=== PATIENT | male | born 1980 | race Two or more races ===

== ENCOUNTER 2020-01-18 10:17 | Inpatient (IN) | payer MEDICAID ==
[~2020-01-18] VITALS: Ht 177.8 cm; Wt 78.9 kg
[2020-01-18] MEDS ORDERED: ONDANSETRON HCL 4 MG/2 ML VIAL IV ONE (11:15)
[2020-01-18] MEDS ORDERED: MORPHINE SULFATE 4 MG/ML SYR/VIAL IV ONE ×2 (11:15→20:15)
[2020-01-18] MEDS ORDERED: SODIUM CHLORIDE 0.9% 500 ML IVB ONE (11:15)
[2020-01-18 11:26] LABS: Basophils # (auto) 0 10 ^3/uL (0-0.2); Basophils % (auto) 0.4 % (0.0-2.0); Eosinophils # (auto) 0 10 ^3/uL (0-0.8); Hematocrit 46.8 % (41.0-53.0); Hemoglobin 15.8 g/dL (13.5-17.5); Lymphocytes # (auto) 0.7 10 ^3/uL (0.4-5.4); Lymphocytes % (auto) 6.2 % (10.0-50.0); Mean Corpuscular Hemoglobin 28.8 pg (28.0-32.0); Mean Corpuscular Hgb Conc. 33.8 g/dL (32.0-36.0); Mean Corpuscular Volume 85.4 fL (80.0-100.0); Monocytes % (auto) 8.7 % (0.0-12.0); Neutrophils # (auto) 9.6 10 ^3/uL (1.6-8.6); Neutrophils % (auto) 84.7 % (37.0-80.0); Nucleated Red Blood Cells % 0.2 %; Platelet Count (auto) 194 10^3/uL (140-450); Red Blood Cells 5.49 10^6/uL (4.5-5.90); Red Cell Distribution Width 13.5 % (11.8-14.3); White Blood Cell 11.4 10^3/uL (4.4-10.8)
[2020-01-18 11:47] LABS: Albumin 3.7 g/dL (3.4-5.0); BUN/Creatinine Ratio 10.8; Calcium 8.8 mg/dL (8.5-10.1); Potassium 4.2 mmol/L (3.5-5.1)
[2020-01-18 11:51] LABS: Bilirubin, Total 0.8 mg/dL (0.2-1.0); Total Protein 8.4 g/dL (6.4-8.2)
[2020-01-18] MEDS ORDERED: metroNIDAZOLE 500MG/100ML 100 ML IV ONE (20:15)
[2020-01-18] MEDS ORDERED: PIPERACILLIN-TAZOB 3.375GM 100 ML IV ONE (20:15)
[2020-01-18] MEDS ORDERED: SODIUM CHLORIDE 0.9% 1,000 ML IV ONE (20:15)
[2020-01-19] MEDS ORDERED: MORPHINE SULF INJ 2 MG/ML SYRINGE 1ML IV PRN (01:30)
[2020-01-19] MEDS ORDERED: ACETAMINOPHEN 500 MG TAB PO PRN (01:30)
[2020-01-19] MEDS ORDERED: NITROGLYCERIN 0.4 MG SL TAB SL PRN (01:30)
[2020-01-19] MEDS ORDERED: PIPERACILLIN-TAZO 4.5GM 100 ML IV ONE (01:30)
[2020-01-19] MEDS ORDERED: HYDROmorphone HCL 2 MG/ML VL IV PRN ×2 (01:30→14:30)
[2020-01-19] MEDS ORDERED: ONDANSETRON HCL 4 MG/2 ML VIAL IV PRN ×2 (01:30→14:30)
[2020-01-19] MEDS ORDERED: HYDROcodone-ACET 5/325MG TAB PO PRN (01:30)
[2020-01-19 04:46] LABS: INR 1.1 (0.9-1.15); Partial Thromboplastin Time 33.3 sec (23.0-31.2)
[2020-01-19 04:57] LABS: Magnesium 2.2 mg/dL (1.6-2.6)
[2020-01-19] MEDS ORDERED: ALBUTEROL SULF HFA 90MCG INH 200DOSE IN SCH (06:00)
[2020-01-19] MEDS: SODIUM CHLORIDE 0.9% 1,000 ML IV SCH ×3 (09:47→18:24)
[2020-01-19] MEDS: AZITHROMYCIN 500MG/D5WorNS 250ml IV SCH (10:00)
[2020-01-19] MEDS: ENOXAPARIN SOD 40 MG/0.4 ML SYRINGE SC SCH ×2 (10:00→21:22)
[2020-01-19] MEDS: MORPHINE SULF INJ 2 MG/ML SYRINGE 1ML IV PRN ×2 (10:02→21:26)
[2020-01-19] MEDS: PIPERACILLIN-TAZOB 3.375GM 100 ML IV SCH ×4 (10:02→23:11)
[2020-01-19] MEDS: ZINC SULFATE 220mg CAP or TAB PO SCH (10:34)
[2020-01-19] MEDS: ASCORBIC ACID 1,000 MG TAB PO SCH (10:35)
[2020-01-19] MEDS: CHOLECALCIFEROL (VITD3) 2,000 UNIT CAP PO SCH (10:36)
[2020-01-19] MEDS ORDERED: ceFAZolin 1GM/50ML 50 ML IV ONE (12:04)
[2020-01-19] MEDS ORDERED: POVIDONE IODINE 10 % TOPICAL OINT 30GM TOP ONE (12:23)
[2020-01-19] MEDS ORDERED: GLYCOPYRROLATE 0.2 MG/ML 1ML VIAL IV ONE (12:24)
[2020-01-19] MEDS ORDERED: NEOSTIGMINE 1 MG/ML INJ (10mg/10ML VIAL) IV ONE (12:24)
[2020-01-19] MEDS ORDERED: fentaNYL CITRATE 100 MCG/2 ML VL ONE (12:24)
[2020-01-19] MEDS ORDERED: MEPERIDINE HCL (50 MG/ML) 1 ML VIAL ONE (12:24)
[2020-01-19] MEDS ORDERED: MIDAZOLAM HCL 1MG/1ML-2 ML VIAL ONE (12:25)
[2020-01-19] MEDS ORDERED: DexAMETHasone SOD PHOS 10MG/1ML VIAL INJ ONE (13:37)
[2020-01-19] MEDS ORDERED: PROPOFOL 10 MG/ML 20 ML IV ONE (13:37)
[2020-01-19] MEDS ORDERED: ONDANSETRON HCL 4 MG/2 ML VIAL ONE (13:56)
[2020-01-19] MEDS ORDERED: LABETALOL HCL 5 MG/ML 4ML SYRINGE IV PRN (14:30)
[2020-01-19] MEDS ORDERED: MIDAZOLAM HCL 1MG/1ML-2 ML VIAL IV PRN (14:30)
[2020-01-19] MEDS ORDERED: KETOROLAC TROMETH 30 MG/ML 1ML VIAL IV ONE (14:30)
[2020-01-19] MEDS ORDERED: ePHEDrine SULFATE 50 MG/ML AMP IV PRN (14:30)
[2020-01-19] MEDS ORDERED: MORPHINE SULFATE 4 MG/ML SYR/VIAL IV PRN (14:30)
[2020-01-19 15:05] VITALS: BP 108/70
[2020-01-19 16:34] VITALS: BP 108/70
[2020-01-19 22:00] VITALS: BP 113/73
[2020-01-19] MEDS: ALBUTEROL SULF HFA 90MCG INH 200DOSE IN PRN (22:37)
[2020-01-20 00:08] LABS: Urine Bacteria NONE SEEN /hpf (None Seen); Urine Blood Negative /uL (Negative); Urine Specific Gravity 1.012 (1.001-1.035); Urine WBC 1 /hpf (0 - 3)
[2020-01-20 00:10] LABS: Amphetamine Screen, Urine NEGATIVE (NEGATIVE); Barbiturate Scree,Urine NEGATIVE (NEGATIVE); Benzodiazephine Screen, Urine NEGATIVE (NEGATIVE); Cannabinoid Screen, Urine NEGATIVE (NEGATIVE); Cocaine Screen, Urine NEGATIVE (NEGATIVE); Opiate Scree,Urine NEGATIVE (NEGATIVE); Phencyclidine Screen, Urine NEGATIVE (NEGATIVE)
[2020-01-20 00:11] LABS: Alcohol, Urine < 3.0 mg/dL (0-10)
[2020-01-20] MEDS: SODIUM CHLORIDE 0.9% 1,000 ML IV SCH ×2 (02:01→09:43)
[2020-01-20 05:00] VITALS: BP 115/62
[2020-01-20] MEDS: PIPERACILLIN-TAZOB 3.375GM 100 ML IV SCH ×2 (05:45→13:46)
[2020-01-20 06:02] LABS: Basophils # (auto) 0 10 ^3/uL (0-0.2); Eosinophils # (auto) 0 10 ^3/uL (0-0.8); Hematocrit 38.3 % (41.0-53.0); Hemoglobin 12.7 g/dL (13.5-17.5); Lymphocytes # (auto) 0.5 10 ^3/uL (0.4-5.4); Lymphocytes % (auto) 5.2 % (10.0-50.0); Mean Corpuscular Hemoglobin 28.5 pg (28.0-32.0); Mean Corpuscular Hgb Conc. 33.2 g/dL (32.0-36.0); Mean Corpuscular Volume 85.8 fL (80.0-100.0); Monocytes # (auto) 0.9 10 ^3/uL (0-1.3); Monocytes % (auto) 8.7 % (0.0-12.0); Neutrophils # (auto) 8.9 10 ^3/uL (1.6-8.6); Neutrophils % (auto) 86.1 % (37.0-80.0); Platelet Count (auto) 184 10^3/uL (140-450); Red Blood Cells 4.46 10^6/uL (4.5-5.90); Red Cell Distribution Width 13.2 % (11.8-14.3); White Blood Cell 10.3 10^3/uL (4.4-10.8)
[2020-01-20 06:20] LABS: Albumin 2.7 g/dL (3.4-5.0)
[2020-01-20 06:25] LABS: BUN/Creatinine Ratio 14.1; Bilirubin, Total 0.5 mg/dL (0.2-1.0); Total Protein 6.4 g/dL (6.4-8.2)
[2020-01-20] MEDS: ALBUTEROL SULF HFA 90MCG INH 200DOSE IN PRN (08:00)
[2020-01-20 09:00] VITALS: BP 114/69
[2020-01-20] MEDS: AZITHROMYCIN 500MG/D5WorNS 250ml IV SCH (09:43)
[2020-01-20] MEDS: ZINC SULFATE 220mg CAP or TAB PO SCH (09:44)
[2020-01-20] MEDS: CHOLECALCIFEROL (VITD3) 2,000 UNIT CAP PO SCH (09:44)
[2020-01-20] MEDS: ASCORBIC ACID 1,000 MG TAB PO SCH (09:44)
[2020-01-20] MEDS: ENOXAPARIN SOD 40 MG/0.4 ML SYRINGE SC SCH (11:29)
[2020-01-20 13:00] VITALS: BP 109/53
[2020-01-20 15:53] VITALS: BP 109/53
== END 2020-01-20 17:30 | disposition home or self-care (01) | DRG 233 ==
LOC: ER 10:17 → OVERFLOW 10:18 → CENTRAL 01-19 15:01
PROVIDERS: ADMIT Internal Medicine; ATTEND Internal Medicine
PROC: 0DTJ4ZZ Resection of Appendix, Percutaneous Endoscopic Approach (ICD-10-PCS; principal; 2020-01-19 12:57)
DX: K35.32 Acute appendicitis with perforation, localized peritonitis, and gangrene, without abscess (principal); U07.1 COVID-19; K76.0 Fatty (change of) liver, not elsewhere classified; F17.200 Nicotine dependence, unspecified, uncomplicated; K66.0 Peritoneal adhesions (postprocedural) (postinfection); I72.2 Aneurysm of renal artery; Z82.49 Family history of ischemic heart disease and other diseases of the circulatory system; Z79.899 Other long term (current) drug therapy
CPT/HCPCS: 36415; 71045; 74176; 80053; 80061; 80307; 81001; 83036; 83690; 83735; 84443; 85025; 85379; 85610; 85730; 86850; 86900; 86901; 87426; 87804; 94640; 96360; G0378; J0690; J1100; J2250; J2405; J2543; J2704; J3490

== ENCOUNTER 2022-05-15 14:25 | Emergency (ER) | payer MEDICAID, OTHER ==
[~2022-05-15] VITALS: Ht 177.8 cm; Wt 75.0 kg
[2022-05-15 16:30] VITALS: BP 133/84
[2022-05-15] MEDS ORDERED: NAPR500T31 PO (16:39)
[2022-05-15] MEDS ORDERED: CEPH-510 PO (16:39)
== END 2022-05-15 16:45 | disposition home or self-care (01) ==
LOC: ER 14:25
DX: L60.0 Ingrowing nail (principal); F12.10 Cannabis abuse, uncomplicated

== ENCOUNTER 2023-02-15 23:27 | Emergency (ER) | payer MEDICAID, OTHER ==
[~2023-02-15] VITALS: Ht 175.3 cm; Wt 79.2 kg
[~2023-02-15 23:27] MED LIST: CEPH-510 PO; NAPR-746 PO
[2023-02-16 01:07] VITALS: BP 111/67; PULSE 96; RESP 18; TEMP 98.1; O2SAT 98
== END 2023-02-16 01:07 | disposition home or self-care (01) ==
LOC: ER 23:27
DX: L03.011 Cellulitis of right finger (principal); F12.10 Cannabis abuse, uncomplicated
CPT/HCPCS: 10060

== ENCOUNTER 2023-04-09 13:30 | Emergency (ER) | payer MEDICAID, OTHER ==
[~2023-04-09] VITALS: Ht 175.3 cm; Wt 73.1 kg
[2023-04-09 14:14] VITALS: BP 110/70; PULSE 98; RESP 16; TEMP 97; O2SAT 99
[2023-04-09] MEDS ORDERED: CEPH500C PO (14:28)
[2023-04-09] MEDS ORDERED: BACDST PO (14:28)
[2023-04-09] MEDS: cefTRIAXone SOD 1,000 MG VL IM ONE (14:55)
== END 2023-04-09 15:05 | disposition home or self-care (01) ==
LOC: ER 13:30
DX: L02.02 Furuncle of face (principal); Z79.899 Other long term (current) drug therapy
CPT/HCPCS: 96372; 99283; J0696

== ENCOUNTER 2024-08-06 16:28 | Emergency (ER) | payer MEDICAID ==
[~2024-08-06] VITALS: Ht 175.3 cm; Wt 82.9 kg
[~2024-08-06 16:28] MED LIST changes: +BACDST PO; +CEPH500C PO
[2024-08-06 17:31] LABS: Urine Bacteria None Seen /hpf (None Seen)
[2024-08-06 17:36] LABS: Basophils # (auto) 0 10 ^3/uL (0-0.2); Basophils % (auto) 0.5 % (0.0-2.0); Eosinophils # (auto) 0.2 10 ^3/uL (0-0.8); Eosinophils % (auto) 2.6 % (0.0-7.0); Hematocrit 42.2 % (41.0-53.0); Hemoglobin 14.4 g/dL (13.5-17.5); Lymphocytes # (auto) 1.3 10 ^3/uL (0.4-5.4); Lymphocytes % (auto) 19.9 % (10.0-50.0); Mean Corpuscular Hemoglobin 28.5 pg (28.0-32.0); Mean Corpuscular Hgb Conc. 34.1 g/dL (32.0-36.0); Mean Corpuscular Volume 83.6 fL (80.0-100.0); Monocytes # (auto) 0.4 10 ^3/uL (0-1.3); Monocytes % (auto) 5.4 % (0.0-12.0); Neutrophils # (auto) 4.8 10 ^3/uL (1.6-8.6); Neutrophils % (auto) 71.6 % (37.0-80.0); Nucleated Red Blood Cells % 0.3 %; Platelet Count (auto) 232 10^3/uL (140-450); Red Blood Cells 5.05 10^6/uL (4.5-5.90); Red Cell Distribution Width 13.6 % (11.8-14.3); White Blood Cell 6.7 10^3/uL (4.4-10.8)
[2024-08-06 17:41] LABS: Anion Gap 8 (5-15); Carbon Dioxide 28 mmol/L (20-31)
[2024-08-06 17:42] LABS: Calcium 9.4 mg/dL (8.7-10.4)
[2024-08-06 17:47] LABS: BUN/Creatinine Ratio 10.5 (10.0-20.0)
[2024-08-06 17:55] LABS: Urine Blood Negative /uL (Negative); Urine Clarity Clear (Clear); Urine Color Light-Yellow (Yellow); Urine Protein, UAD Negative (Negative); Urine Specific Gravity 1.015 (1.001-1.035); Urine Squamous Epithelial Cell FEW /hpf (<5); Urine Urobilinogen Normal (Negative); Urine WBC 1 /HPF (0-3); Urine pH 5.5 (5.0-9.0)
--- NOTE | 2024-08-06 18:03 | ED.PDOC ---
HPI Comments This is a 43 year old male presenting to the ED with chief complaint of syncope. Patient reports that he had gotten out of fast bed an hour ago when laying down, causing him to feel lightheaded, lowering himself on the floor, then had a syncopal episode. Patient relays that he feels fine now and only came to the ED to make sure he was healthy. Patient denies any N/V, chest pain, SOB, dizziness, blurred vision, or fever. Patient has a history of syncopal events, seizures or similar events. Chief Complaint: Syncope Time Seen by MD: 18:00 Primary Care Provider: NONE Reviewed Notes: Nurses Notes, Medications, Allergies Allergies: Coded Allergies: NO KNOWN ALLERGIES (Unverified , 01/18/20) Home Meds Active Scripts Naproxen (Naproxen) 500 Mg Tab, 500 MG PO BID, #30 TAB Prov:THANG MEJIA 04/09/23 Cephalexin Monohydrate (Cephalexin) 500 Mg Cap, 1 CAP PO QID, #28 CAP Prov:THANG MEJIA 04/09/23 Sulfamethoxazole W/Trimethopri (Bactrim Ds Tablet) 1 Tab Tb, 1 TAB PO BID for 10 Days, #20 TAB Prov:THANG MEJIA 04/09/23 Naproxen (Naproxen) 500 Mg Tab, 500 MG PO BID, #30 TAB Prov:THANG MEJIA 05/15/22 Cephalexin ( Keflex 500) 500 Mg Cap, 1 CAP PO QID for 8 Days, #32 CAP Prov:THANG MEJIA 05/15/22 Information Source: Patient Mode of Arrival: Ambulatory Severity: Moderate Timing: Hours Duration: Since onset Prehospital treatment: None Cardiac Risk Factors: None PE Risk Factors: None History of: None Associated Signs and Symptoms: Syncope Past Medical History PAST MEDICAL HISTORY: Denies Surgical History: Denies all surgeries Family History Family History: Reviewed,noncontributory to illness, Family hx of HTN Social History Smoker: Non-Smoker Alcohol: Occasionally Drugs: Marijuana Lives In: Home Constitutional: denies: chills, diaphoresis, fatigue, fever, malaise, sweats, weakness, others EENTM: denies: blurred vision, double vision, ear bleeding, ear discharge, ear drainage, ear pain, ear ringing, eye pain, eye redness, hearing loss, mouth pain, mouth swelling, nasal discharge, nose bleeding, nose congestion, nose pain, photophobia, tearing, throat pain, throat swelling, voice changes, others Respiratory: denies: cough, hemoptysis, orthopnea, SOB at rest, shortness of breath, SOB with excertion, stridor, wheezing, others Cardiovascular: reports: syncope; denies: chest pain, dizzy spells, diaphoresis, Dyspnea on exertion, edema, irregular heart beat, left arm pain, lightheadedness, palpitations, PND, others Gastrointestinal: denies: abdomen distended, abdominal pain, blood streaked bowels, constipated, diarrhea, dysphagia, difficulty swallowing, hematemesis, melena, nausea, poor appetite, poor fluid intake, rectal bleeding, rectal pain, vomiting, others Genitourinary: denies: burning, dysuria, flank pain, frequency, hematuria, incontinence, penile discharge, penile sore, pain, testicle pain, testicle swelling, urgency, others Neurological: reports: fainting; denies: dizziness, headache, left sided numbness, left sided weakness, numbness, paresthesia, pre-existing deficit, right sided numbness, right sided weakness, seizure, speech problems, tingling, tremors, weakness, others Musculoskeletal: denies: back pain, gout, joint pain, joint swelling, muscle pain, muscle stiffness, neck pain, others Integumetry: denies: bruises, change in color, change in hair/nails, dryness, laceration, lesions, lumps, rash, wounds, others Allergic/Immunocompromised: denies: Difficulty Healing, Frequent Infections, Hives, Itching, others Hematologic/Lymphatic: denies: anemia, blood clots, easy bleeding, easy bruising, swollen glands, others Endocrine: denies: excessive hunger, excessive sweating, excessive thirst, excessive urination, flushing, intolerance to cold, intolerance to heat, unexplained weight gain, unexplained weight loss, others Psychiatric: denies: anxiety, bipolar disorder, depression, hopeless, panic d isorder, schizophrenia, sleepless, suicidal, others All Other Systems: Reviewed and Negative Physical Exam General Appearance: No Apparent Distress (Patient was in no distress at time of evaluation.), Normal HEENT: Normal ENT Inspection, Pharynx Normal, TMs Normal Neck: Full Range of Motion, Non-Tender, Normal, Normal Inspection Respiratory: Chest Non-Tender, Lungs Clear, No Accessory Muscle Use, No Respiratory Distress, Normal Breath Sounds Cardiovascular: No Edema, No JVD, No Murmur, No Gallop, Normal Peripheral Pulses, Regular Rate/Rhythm Breast Exam: Deferred Gastrointestinal: No Organomegaly, Non Tender, No Pulsatile Mass, Normal Bowel Sounds, Soft Genitalia: Deferred Pelvic: Deferred Rectal: Deferred Extremities: No calf tenderness, Normal capillary refill, Normal inspection, Normal range of motion, Non-tender, No pedal edema Neurologic: Alert, No Motor Deficits, Normal Affect, Normal Mood, No Sensory Deficits Cerebellar Function: Normal Reflexes: Normal Skin: Dry, Normal Color, Warm Lymphatic: No Adenopathy Was a procedure done? Was a procedure done?: No CP Differential Dx Differential Diagnosis: A-fib, Anxiety / Panic Attack, MD, Other (Vasovagal, sepsis, electrolyte abnormality, UTI, acute coronary syndrome) Differential Diagnosis: Angina X-Ray, Labs, Meds, VS Vital Signs Date Time Temp Pulse Resp B/P (MAP) Pulse Ox O2 Delivery O2 Flow Rate FiO2 08/06/24 17:07 72 08/06/24 16:30 98.1 74 20 131/78 (95) 96 98.1 Lab Test 08/06/24 17:31 08/06/24 17:20 08/06/24 17:02 Range/Units Urine Color Light-yellow Yellow Urine Clarity Clear Clear Urine pH 5.5 5.0-9.0 Urine Specific [place] 1.015 1.001-1.035 Urine Protein Negative Negative Urine Ketones Negative Negative Urine Blood Negative Negative /uL Urine Nitrite Negative Negative Urine Bilirubin Negative Negative Urine Urobilinogen Normal Negative mg/dL Urine Leukocyte Esterase Negative Negative /uL Urine RBC 1 0 - 3 /hpf Urine Microscopic WBC 1 0-3 /HPF Urine Squamous Epithelial Cells Few <5 /hpf Urine Bacteria None seen None Seen /hpf Urine Glucose Normal Normal mg/dL White Blood Count 6.7 4.4-10.8 10^3/uL Red Blood Count 5.05 4.5-5.90 10^6/uL Hemoglobin 14.4 13.5-17.5 g/dL Hematocrit 42.2 41.0-53.0 % Mean Corpuscular Volume 83.6 80.0-100.0 fL Mean Corpuscular Hemoglobin 28.5 28.0-32.0 pg Mean Corpuscular Hemoglobin Concent 34.1 32.0-36.0 g/dL Red Cell Distribution Width 13.6 11.8-14.3 % Platelet Count 232 140-450 10^3/uL Mean Platelet Volume 7.9 6.9-10.8 fL Neutrophils (%) (Auto) 71.6 37.0-80.0 % Lymphocytes (%) (Auto) 19.9 10.0-50.0 % Monocytes (%) (Auto) 5.4 0.0-12.0 % Eosinophils (%) (Auto) 2.6 0.0-7.0 % Basophils (%) (Auto) 0.5 0.0-2.0 % Neutrophils # (Auto) 4.8 1.6-8.6 10 ^3/uL Lymphocytes # (Auto) 1.3 0.4-5.4 10 ^3/uL Monocytes # (Auto) 0.4 0-1.3 10 ^3/uL Eosinophils # (Auto) 0.2 0-0.8 10 ^3/uL Basophils # (Auto) 0 0-0.2 10 ^3/uL Nucleated Red Blood Cells 0.3 % Sodium Level 146 H 136-145 mmol/L Potassium Level 3.4 L 3.5-5.1 mmol/L Chloride Level 110 H 98-107 mmol/L Carbon Dioxide Level 28 20-31 mmol/L Anion Gap 8 5-15 Blood Urea Nitrogen 9 9-23 mg/dL Creatinine 0.86 0.700-1.30 mg/dL Glomerular Filtration Rate Calc 109 >90 mL/min BUN/Creatinine Ratio 10.5 10.0-20.0 Serum Glucose 72 L 74-106 mg/dL Calcium Level 9.4 8.7-10.4 mg/dL Troponin I High Sensitivity < 3 L </=54 ng/L POC Glucose 99 70-106 mg/dl X-Ray, Labs, Meds, VS Comment All studies performed the ED were evaluated by me personally. Serum studies and urinalysis was unremarkable for any systemic concerns. EKG revealed a sinus rhythm with a rate of 72. Right axis deviation noted as well as ST-elevation which is probably related to early repolarization. FL interval of 169 and QT interval of 405. Normal EKG. Based on the patient's presentation, I believe the patient is suffering from a vasovagal event. Advised good hydration and healthy nutrition moving forward. Time of 1ST Reevaluation: 18:57 Reevaluation 1ST: Improved Consultation: PCP Patient Education/Counseling: Diagnosis, Treatment Family Education/Counseling: Diagnosis, Treatment, No Family Present SEPSIS Sepsis Screen Date sepsis recognized/suspect: Aug 06, 2024 Time Sepsis recognized/suspect: 1649 Recent Procedure: No On Antibiotic Therapy: No Respiratory Rate >20: No Heart Rate >90: No Temp<36 C (96.8 F) or >38.3 C: No SBP <90 or MAP <65 mmHG: No New Acute Mental Status Change: No Is the patient on CPAP, BIPAP,: No Physician Orders Electrocardigram (08/06/24 17:04) Vital Signs Date Time Temp Pulse Resp B/P (MAP) Pulse Ox O2 Delivery O2 Flow Rate FiO2 08/06/24 17:07 72 08/06/24 16:30 98.1 74 20 131/78 (95) 96 98.1 Laboratory Tests Test 08/06/24 17:20 White Blood Count 6.7 10^3/uL (4.4-10.8) Departure 1 Departure Time of Disposition: 18:57 Impression: Primary Impression: Vasovagal episode Disposition: 01 HOME / SELF CARE / HOMELESS Condition: Stable Additional Instructions: Advised good hydration and healthy nutrition move forward. Discharged With: Self, Friend Critical Care Note Critical Care Time?: No Stability Stability form required: No Heart Score Heart Score: Heart Score Response (Comments) Value History Moderate Suspicious 1 EKG Normal 0 Age 45-64 1 Risk Factors 1 or 2 risk factors 1 Troponin Normal limit 0 Total 3 I personally scribed for KEYUR BROWN PAC ([email or web address]) on 08/06/24 at 18:03. Electronically submitted by Manoj Kruse ([email or web address]). KEYUR BROWN PAC Aug 06, 2024 18:03
[2024-08-06 18:19] LABS: Blood Urea Nitrogen 9 mg/dL (9-23); Chloride 110 mmol/L (98-107); Glucose 72 mg/dL (74-106); Potassium 3.4 mmol/L (3.5-5.1); Sodium 146 mmol/L (136-145)
[2024-08-06 22:00] VITALS: BP 125/72; PULSE 67; RESP 16; TEMP 98; O2SAT 99
--- NOTE | 2024-08-08 10:25 | ECG ---
[facility] Test Date: 2024-08-06 Test Time: 17:07:05 Pat Name: EVELINE MATHEW Department: ER Room: Gender: M [employer]ing Line Operator: KARENA : 1980 Requested By: KEYUR BROWN Order Number: [id number] Reading MD: Lang Willis Measurements Intervals [place] Rate: 72 P: -8 [place]: 168 QRS: 118 QRSD: 105 T: 19 QT: 405 QTc: 444 Interpretive Statements Sinus rhythm Right axis deviation ST elev, probable normal early repol pattern Electronically Signed On 08-09-2024 22:43:44 PDT by Lang Willis Please click the below link to view image of tracing.
== END 2024-08-06 22:30 | disposition home or self-care (01) ==
LOC: ER 16:28
DX: R55 Syncope and collapse (principal)
CPT/HCPCS: 36415; 80048; 81001; 82947; 82962; 84484; 85025; 93005